=== PATIENT | female | born 1950 | race American Indian/Alaskan Native ===

== ENCOUNTER 2018-10-26 13:51 | Outpatient (CLI) | payer OTHER, MEDICARE ==
--- NOTE | 2018-10-26 15:50 | Mammography Report ---
BILATERAL DIGITAL DIAGNOSTIC MAMMOGRAM with CAD: 10/26/18 13:51:00 CLINICAL: Followup bilateral calcifications. COMPARISON:03/11/18 mammogram from [facility] Breast FINDINGS: The breasts are heterogeneously dense, which may obscure small masses. Bilateral upper-outer calcifications are stable and have benign morphology. Magnification views of the upper outer right breast demonstrate predominantly punctate calcifications with no layering. Magnification views of the upper outer left breast demonstrate amorphous calcifications with some layering. No mass, architectural distortion or suspicious calcifications. IMPRESSION: No mammographic evidence of malignancy.Bilateral benign calcifications. RECOMMENDATION: Routine mammographic screening in one year. BI-RADS CATEGORY: 2 - - Benign COMMENT: 1. Dense breast tissue, i.e., adenosis, fibrocystic changes, etc., may obscure an underlying neoplasm. 2. Approximately 10% of cancers are not detected with mammography. 3. A negative mammography report should not delay biopsy if a clinically suspicious mass is present. COMMENT: Patient follow-up letters are generated by our [employer] application.
--- NOTE | 2018-10-27 08:16 | Mammography Report ---
BONE DEXA:10/26/18 13:51:00 CLINICAL: Postmenopausal. No comparison. TECHNIQUE: Two site bone DEXA performed on an Hologic scanner. FINDINGS: The average BMD of the lumbar spine L1-L4 is 0.960g/cm squared with a T-score of -1.7 and a Z-score of +0.4. The average BMD of the left hip is 0.866g/cm squared with a T-score of -1.1 and a Z-score of 0. The lateral femoral neck BMD is 0.684g/cm squared with a T score -1.9 and Z score of -0.5. IMPRESSION: WHO classification: Osteopenia with increased fracture risk based on both spine and left femoral neck measurements. RECOMMENDATION: Clinical correlation and routine screening. DEFINITIONS: BMD = Bone Mineral Density T-score = BMD related to mean peak bone mass of young adult (mean expressed in Standard Deviation) Z-score = Age matched BMD expressed in SD World Health Organization (WHO) Diagnostic Criteria Normal T-score > -1 SD Osteopenia T-score between -1 and -2.4 SD Osteoporosis T-score -2.5 SD or below NOTE: BMD is not the only risk factor for fracture. One should also consider factors such as the patient's age, risk of falling, previous osteoporotic fracture, family history of osteoporotic fractures, current smoker, and low body weight. Z-scores are not calculated if >80 years of age.
== END 2018-10-26 13:52 | disposition home or self-care (01) ==
LOC: SPVWC 13:51
PROVIDERS: ATTEND Family Medicine
DX: Z13.820 Encounter for screening for osteoporosis (principal); R92.8 Other abnormal and inconclusive findings on diagnostic imaging of breast; Z91.89 Other specified personal risk factors, not elsewhere classified; Z78.0 Asymptomatic menopausal state
CPT/HCPCS: 77066; 77080